=== PATIENT | female | born 1960 | race American Indian/Alaskan Native ===

== ENCOUNTER 2017-05-04 22:13 | Emergency (ER) | payer OTHER ==
[2017-05-04] MEDS ORDERED: PEPCID IV ONE (22:31)
[2017-05-04] MEDS ORDERED: APRESOLINE IV ONE (22:32)
[2017-05-04] MEDS ORDERED: BENADRYL IV ONE (22:32)
[2017-05-04] MEDS ORDERED: ADRENALINE P/F SUB-Q ONE (22:39)
--- NOTE | 2017-05-04 23:01 | Emergency Department Report ---
HPI - General Chief Complaint: Allergic Reaction Time Seen by Provider: 05/04/17 22:31 - HPI HPI: This is a 56 year-old female presents to the emergency department with complaint of a possible allergic reaction. The patient had lunch earlier today in midafternoon and ate some fish. Shortly after that she noticed some swelling to the face and felt like her throat was starting to swell. She had some abdominal discomfort, nausea and vomiting. They noticed a small lesion to the top of the mouth that look like a small blood blister and it has been getting progressively bigger. She has a known allergic reaction to peanuts and latex but has never had an allergic reaction to fish. She presents with elevated blood pressure and does have a history of hypertension and says she has been compliant with her medication. She has not taken anything for her symptoms prior to presentation. ED Past Medical Hx - Social History Smoking Status: Never Smoker Substance Use Type: None ED Review of Systems ROS: Stated complaint: ALLERGIC REACTION Other details as noted in HPI Comment: All other systems reviewed and negative Constitutional: denies: chills, fever Eyes: denies: eye pain, eye discharge, vision change ENT: throat pain, other (throat swelling, blood blister on hard palate) Respiratory: denies: cough, shortness of breath, wheezing Cardiovascular: denies: chest pain, palpitations Gastrointestinal: nausea, vomiting Genitourinary: denies: urgency, dysuria, discharge Musculoskeletal: denies: back pain, joint swelling, arthralgia Skin: lesions, pruritus Neurological: denies: headache, weakness, paresthesias Physical Exam - Physical Exam Vital Signs: Vital Signs 05/04/17 22:18 Temperature 98.7 F Pulse Rate 89 Respiratory 22 Rate Blood Pressure 182/101 O2 Sat by Pulse 100 Oximetry Physical Exam: GENERAL: The patient is well-developed well-nourished. HENT: Normocephalic. Atraumatic. Patient has moist mucous membranes. The patient currently has a Mallampati of 2. The uvula is visible midline. Patient has a hemorrhagic blister to the left posterior of the hard palate, anterior and to the left of the uvula. There is some mild oozing of blood from this blister. There is no drooling or trismus. Patient appears able to swallow but has some pain with doing so secondary to the blister. EYES: Extraocular motions are intact. Pupils equal reactive to light bilaterally. NECK: Supple. Trachea is midline. CHEST/LUNGS: Clear to auscultation. There is no respiratory distress noted. HEART/CARDIOVASCULAR: Regular. There is no tachycardia. There is no gallop rub or murmur. ABDOMEN: Abdomen is soft, nontender. Patient has normal bowel sounds. There is no abdominal distention. SKIN: There is no rash. There is no edema. There is no diaphoresis. NEURO: The patient is awake, alert, and oriented. The patient is cooperative. The patient has no focal neurologic deficits. The patient has normal speech. MUSCULOSKELETAL: There is no tenderness or deformity. There is no limitation range of motion. There is no evidence of acute injury. ED Course Vital Signs 05/04/17 22:18 Temperature 98.7 F Pulse Rate 89 Respiratory 22 Rate Blood Pressure 182/101 O2 Sat by Pulse 100 Oximetry - Consultations Consultation #1: I spoke with the enlisted advisor at [facility], Dr. Antony, who has agreed to accept the patient as a transfer to the emergency department where she will be evaluated by the ENT service. 05/04/17 23:36 ED Medical Decision Making - Lab Data Result diagrams: 05/04/17 22:47 05/04/17 22:47 - Medical Decision Making This patient presents with what appears to be a allergic reaction to some fish she had around 5 PM this evening. It started off with some complaint of facial and/or lip swelling, although there is no appreciable swelling of her face or angioedema of the lips at this time. The patient developed a hemorrhagic blister to the left posterior hard palate that apparently was small when they decided to come in to be seen but at this time it is much larger at about 3 cm in diameter and almost touches the tongue. However despite this hemorrhagic blister, I can still see in the patient's posterior pharynx. She does not have any drooling or trismus. She does appear to be able to handle her secretions but she does spit up some of the blood so that she does not swallow it or have it go down into the posterior pharynx. She was given epinephrine, slight Medrol , Pepcid and Benadryl and she says that it feels like it is slightly improving. However this patient will require at least an observational admission and I believe that she requires otolaryngology to at least be available as this blister may need to be evacuated or if there is worsening of her condition and intubation is required, I imagine that the blister might open up at that time. Since we do not have otolaryngology or oromaxillofacial at this facility, I believe the patient needs to be transferred to a facility where these specialists are available. I spoke with a enlisted advisor through [facility] who has agreed for an ER to ER transfer where the ENT service will see the patient. The patient does appear stable for transport at this time. Her vital signs are stable including no tachycardia, no tachypnea, no hypoxia and the patient does not require any oxygen supplementation at this time. - Differential Diagnosis allergic reaction, angioedema, hemorrhagic blister Critical Care Time: No Critical care attestation.: If time is entered above; I have spent that time in minutes in the direct care of this critically ill patient, excluding procedure time. ED Disposition Clinical Impression: Blood blister Allergic reaction Qualifiers: Encounter type: initial encounter Qualified Code(s): T78.40XA - Allergy, unspecified, initial encounter Hypertension Qualifiers: Hypertension type: essential hypertension Qualified Code(s): I10 - Essential ( primary) hypertension Disposition: DC/TX-70 ANOTHER TYPE HLTHCARE Is pt being admited?: No Condition: Stable Instructions: Hypertension (ED) Referrals: KENTRELL WALTON MD [Primary Care Provider] - 3-5 Days Time of Disposition: 23:59
[2017-05-04 23:10] LABS: Basophils % (Auto) 0.5 % (0.0-1.8); Hematocrit 42.9 % (30.3-42.9); Hemoglobin 14.1 gm/dl (10.1-14.3); Mean Corpuscular HGB Conc 33 % (30-34); Mean Corpuscular Hemoglobin 27 pg (28-32); Mean Corpuscular Volume 83 fl (79-97); Platelet Count 145 K/mm3 (140-440); Red Blood Count 5.18 M/mm3 (3.65-5.03); Red Cell Distribution Width 14.8 % (13.2-15.2); White Blood Count 9.1 K/mm3 (4.5-11.0)
[2017-05-04 23:22] LABS: Anion Gap 18 mmol/L; BUN/Creatinine Ratio 20; Blood Urea Nitrogen 14 mg/dL (7-17); Calcium 9.6 mg/dL (8.4-10.2); Carbon Dioxide 24 mmol/L (22-30); Chloride 100.5 mmol/L (98-107); Glucose 109 mg/dL (65-100); Potassium 3.4 mmol/L (3.6-5.0); Sodium 139 mmol/L (137-145)
[2017-05-04 23:43] VITALS: BP 163/104
== END 2017-05-05 00:35 | disposition other institution (70) ==
LOC: ED 22:13
DX: T78.40XA Allergy, unspecified, initial encounter (principal); I10 Essential (primary) hypertension; Y92.89 Other specified places as the place of occurrence of the external cause
CPT/HCPCS: 36415; 80048; 85025; 96372; 96374; 96375; 99285; J0171; J1200; J2930

== ENCOUNTER 2018-01-19 09:14 | Outpatient (CLI) | payer OTHER ==
--- NOTE | 2018-01-20 13:09 | Magnetic Resonance Report ---
BILATERAL BREAST MRI WITHOUT AND WITH CONTRAST: 01/19/18 09:14:00 CLINICAL: Strong family history of breast cancer with positive genetic confirmation. History of right stage III triple negative breast cancer treated with partial mastectomy, sentinel node excision, neoadjuvant chemotherapy and postsurgical radiation therapy. COMPARISON:None. TECHNIQUE: Axial 1.0-mm T1 without, axial high resolution 2.0-mm T2 and axial 1.0-mm dynamic Vibrant high-resolution postcontrast T1 fat saturation sequences on a 1.5 Suzi magnet. The examination was performed with an 8 channel dedicated Sentinelle breast coil. Post processing with CAD and subtraction was performed on an [employer] workstation. 15.0 cc of Multihance was injected without incident for the contrast portion of the exam. Consent was obtained prior to the administration of the contrast. FINDINGS: Right: Minimal background parenchymal enhancement. No mass or suspicious enhancement. The right breast is slightly smaller than the left with minimal postsurgical scar. No suspicious right axillary or right internal mammary lymph nodes. Left: Minimal background parenchymal enhancement. Slightly irregular focal non-Mass enhancement at 10 o'clock 8.3 cm from the nipple measures 6.0 x 3.0 x 2.2 mm. It demonstrates heterogeneous enhancement with mixed kinetics, 168% peak enhancement, 17% type I persistent, 37% type II plateau and 46% type III washout waveforms. No other suspicious enhancement and no mass of the left breast. No suspicious left axillary or left internal mammary lymph nodes. IMPRESSION: A single 6 mm suspicious lesion of focal non-Mass enhancement in the left breast at 10 o'clock 8 cm from the nipple. Recommend MRI guided needle biopsy. Negative right breast status post partial mastectomy. No suspicious lymph nodes. RIGHT BI-RADS 1 -- Negative LEFT BI-RADS 4 -- Suspicious
== END 2018-01-19 09:15 | disposition home or self-care (01) ==
LOC: SPVIMAG 09:14
PROVIDERS: ATTEND Surgery
DX: Z15.01 Genetic susceptibility to malignant neoplasm of breast (principal); I10 Essential (primary) hypertension; Z91.010 Allergy to peanuts; Z91.040 Latex allergy status
CPT/HCPCS: A9577; C8908; 77059

== ENCOUNTER 2018-02-24 08:32 | Outpatient (CLI) | payer OTHER ==
--- NOTE | 2018-02-24 11:03 | Mammography Report ---
LEFT DIGITAL DIAGNOSTIC MAMMOGRAM: 02/24/18 08:32:00 CLINICAL: For clip placement immediately status post MRI biopsy. COMPARISON:01/19/18 MRI FINDINGS: A biopsy clip is now identified in the upper inner quadrant the site of biopsy. IMPRESSION: Concordant clip placement status post MRI biopsy. BI-RADS CATEGORY: 4--Suspicious Pathology pending.
--- NOTE | 2018-02-24 11:42 | Magnetic Resonance Report ---
MRI GUIDED VACUUM ASSISTED CORE BIOPSY LEFT BREAST: 02/24/18 08:32:00 CLINICAL: Suspicious focal non-Mass enhancement of the upper inner left breast. COMPARISON: 01/19/18 MRI Breast FINDINGS: Consent for the procedure was obtained. A Vibrant dynamic postcontrast series was performed on a 1.5 Suzi magnet using an 8 channel Sentinelle dedicated breast coil. 17 cc of Multihance was injected intravenously for the contrast portion of the exam and consent was obtained prior to administration of contrast. The lesion was localized and targeted using [employer] Sentinelle biopsy software. The skin was anesthetized with 1% lidocaine and a small dermatotomy was made. 2% lidocaine was administered for deeper anesthesia. 9-G biopsy was performed with an [employer] vacuum assisted device. Imaging demonstrated satisfactory positioning of the probe and samples were obtained. A clip was placed after confirmation of adequate sampling. The probe was removed and hemostasis was achieved with pressure to the site. A sterile dressing was applied. The patient tolerated the procedure well and there were no apparent complications. A two view mammogram demonstrated concordant clip placement. The patient left the department in good condition and was given instructions for wound care and follow-up. IMPRESSION: Uncomplicated MRI guided needle biopsy with clip placement left breast.
== END 2018-02-24 08:33 | disposition home or self-care (01) ==
LOC: SPVIMAG 08:32
PROVIDERS: ATTEND Surgery
DX: N64.89 Other specified disorders of breast (principal); N63.12 Unspecified lump in the right breast, upper inner quadrant; Z91.040 Latex allergy status; Z91.010 Allergy to peanuts
CPT/HCPCS: 19085; 77065; 88305; A4648; A9577

== ENCOUNTER 2019-03-14 10:27 | Outpatient (CLI) | payer OTHER ==
--- NOTE | 2019-03-15 10:08 | Magnetic Resonance Report ---
BILATERAL BREAST MR WITHOUT AND WITH GADOLINIUM INDICATION: Personal history of right breast cancer status post right partial mastectomy. Status pos t left benign MRI guided needle biopsy 02/24/2018. COMPARISONS: 01/19/2018 and 02/24/2018 TECHNIQUE: Axial 1.0 mm T1 without, axial high-resolution 2.0 mm T2 and axial 1.0 mm dynamic vibrant high-resolution postcontrast T1 fat saturation sequences on a 1.5 Suzi magnet. The examination was p erformed with an 8-channel dedicated Sentinelle breast coil. Post-processing with CAD and subtraction was performed on an [employer] workstation. 15.0 cc of MultiHance was injected without incident for the c ontrast portion of the exam. Consent was obtained prior to the administration of the contrast. FINDINGS: RIGHT BREAST: Minimal background parenchymal enhancement. No mass or suspicious enhancement. No suspi cious lymph nodes. LEFT BREAST: Minimal background parenchymal enhancement. No mass or suspicious enhancement. A biopsy clip is identified in the upper inner quadrant and correlates with the site of the benign MRI guided needle biopsy. No suspicious lymph nodes. IMPRESSION: 1. Negative study. 2. Recommend routine mammographic screening. BI-RADS Category 1: Negative Signer Name: Darryl Avendano MD Signed: 03/15/2019 10:04 AM Workstation Name: [id number]
== END 2019-03-14 10:28 | disposition home or self-care (01) ==
LOC: SPVIMAG 10:27
PROVIDERS: ATTEND Surgery
DX: Z85.3 Personal history of malignant neoplasm of breast (principal)
CPT/HCPCS: A9577; C8908; 77049

== ENCOUNTER 2020-05-30 10:03 | Outpatient (CLI) | payer OTHER ==
--- NOTE | 2020-05-30 11:28 | Mammography Report ---
BILATERAL DIGITAL SCREENING MAMMOGRAM WITH CAD HISTORY: Screening mammogram, personal history of right breast benign surgery in the left breast biop sy. TECHNIQUE: Routine digital mammographic imaging performed. This examination was interpreted with tarun fong of Computer-aided Detection analysis. COMPARISON: 05/23/2019, 04/29/2018, 02/24/2018, 04/30/2017. FINDINGS: Breast Density: scattered fibroglandular appearance of the breast tissue. Digital CC and MLO views demonstrate no mammographic evidence of malignancy. Stable mild postsurgica l changes in the right lateral breast. A biopsy marker in the left upper inner breast is again noted. IMPRESSION: No mammographic evidence of malignancy. If the clinical examination remains stable, recommend bilate ral mammogram in approximately one year. BIRADS 2: Benign Finding(s). FURTHER INFORMATION: According to the [employer], yearly mammograms are recommend ed starting at age 40 and continuing as long as a woman is in good health. Clinical Breast Exams shou ld be part of a periodic health exam-about every 3 years for women in their 20s and 30s and every yea r for women 40 and over. Breast self exam is an option for women starting in their 20s. Any breast ch arslan noted on a breast self exam should be reported promptly to the patient's healthcare provider. Br east MRI is recommended for women with an approximately 20-25% or greater lifetime risk of breast can cer, including women with a strong family history of breast or ovarian cancer and women who have been treated for Hodgkin's disease. A negative Mammography report should not discourage follow up or biopsy of a clinically significant f inding and/or abnormality. Dense breast tissue may obscure small neoplasms. The patient will be entered into a reminder system with a target due date for the next screening mamm ogram. Signer Name: Navi Medel MD Signed: 05/30/2020 11:24 AM Workstation Name: [id number]
== END 2020-05-30 10:04 | disposition home or self-care (01) ==
LOC: SPVWC 10:03
PROVIDERS: ATTEND Surgery
DX: Z12.31 Encounter for screening mammogram for malignant neoplasm of breast (principal)
CPT/HCPCS: 77067